=== PATIENT | female | born 1950 | race Asian ===

== ENCOUNTER 2016-04-22 19:32 | Emergency (ER) | payer OTHER ==
[2016-04-22] MEDS ORDERED: NS 1,000 ML IV ONE (19:40)
[2016-04-22] MEDS ORDERED: ONDANSETRON 4 MG/2 ML VIAL IVP ONE ×2 (19:56→20:50)
[2016-04-22 19:57] VITALS: TEMP 97.9
--- NOTE | 2016-04-22 20:02 | UCPHY ---
H & P Patient Type: New Chief Complaint Nursing Narrative: On tuesday seen at [facility] for pain r flank . Worse w movement. Today took Tramadol at 12noon and since then has been vomiting . States a lot of urinating last pm. Denies trauma Time Seen by Provider: 04/22/16 19:40 HPI/ROS: This patient complains of severe right-sided abdominal pain. She says that it started April 04, 2018 days ago but was initially mild. Over the past 2 days became severe in intensity. The pain worsens with movement. She notes no other exacerbating or alleviating factors. She was seen at [facility] 2 days ago and prescribed tramadol for pain. The daughter was who is translating was not present at that visit so she is not certain of the diagnosis. The patient tried tramadol and started vomiting thereafter. She describes the nature the pain is sharp and severe in intensity. ROS: No fevers or chills. No other constitutional complaints. HEENT: No headache or other complaints neuro: No focal weakness or other complaints pulmonary: No coughing. No shortness of breath cardiovascular: No chest pain other she does report that her entire right side hurts. She has had normal bowel movements. She has ongoing nausea. She has a less appetite than usual. : Polyuria last night with for urinary frequency. No other urinary symptoms. Endocrine: No blurred vision or polydipsia. Integumentary: No rash complete review of symptoms is otherwise negative. Source: Family Exam Limitations: Language barrier - Personal History Current Tetanus/Diphtheria Vaccine: Unsure Current Tetanus Diphtheria and Acellular Pertussis (TDAP): Unsure - Medical/Surgical History PMH: Borderline hypertension Diabetes Past surgical history of tubal ligation. No other abdominal surgeries. Hx Diabetes: Yes Other PMH: DM. Sleep issues - Family History Significant Family History: No pertinent family hx - Social History Smoking Status: Never smoked Alcohol Use: None Drug Use: None - Physical Exam Exam: General Appearance: Pleasant female in quiet distress due to belly pain. Alert, no distress. Eyes: Pupils equal and round no pallor or injection. ENT, Mouth: Mucous membranes moist. Respiratory: There are no retractions, lungs are clear to auscultation. Cardiovascular: Regular rate and rhythm. No murmur gallop rub. No peripheral edema. Gastrointestinal: Hypoactive bowel sounds. Soft, positive right lower quadrant tenderness-moderate. No rebound tenderness. Rovsing's is negative. Back: Positive right CVA tenderness Neurological: Alert with no focal deficits appreciated. Skin: Warm and dry, no rashes. Musculoskeletal: Neck is supple nontender. Extremities are symmetrical, full range of motion. Psychiatric: Flat affect otherwise normal mood and affect DIFFERENTIAL DIAGNOSIS: After history and physical exam differential diagnosis was considered for ureteral stone, pyelonephritis, appendicitis, diverticulitis , diverticular abscess, pancreatitis Constitutional: Initial Vital Signs Temperature (C) 36.6 C 04/22/16 19:51 Heart Rate 83 04/22/16 19:51 Respiratory Rate 18 04/22/16 19:51 Blood Pressure 204/122 H 04/22/16 19:51 O2 Sat (%) 94 04/22/16 19:51 O2 Delivery Mode Room Air Allergies/Adverse Reactions: No Known Allergies Allergy (Unverified 04/22/16 19:51) Home Medications: Medication Instructions Recorded Diabetes Medication 04/22/16 Docusate Sodium [Colace 100 MG (*)] 100 mg PO DAILY #30 cap 04/22/16 Methocarbamol [Robaxin 750 mg (*)] 750 - 1,500 mg PO QID PRN #30 tab 04/22/16 Metoprolol Tartrate 25 mg PO DAILY #30 tablet 04/22/16 Sleep Medication 04/22/16 traMADol 04/22/16 Medical Decision Making - Diagnostics EKG Interpretation: 12 lead EKG performed at 8:31 p.m. -indication mild dyspnea and questionable chest pressure reveals sinus rhythm at 68 Intervals: Normal throughout [place]: Normal throughout ST segments: Biphasic T's anteriorly with no previous EKG for comparison. Cannot rule out anterior ischemia. Imaging: Chest x-ray: Normal by my interpretation Abdomen/pelvis CT with IV contrast rule out appendicitis: Normal appearing appendix per Dr. Zheng radiologist. 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 I also reviewed the CT images. ED Course/Re-evaluation: At 8:15 p.m. back in the room to check on the patient she has mild hypoxia after a low dose of IV morphine placed on supplemental O2 2 L. She reports her daughter that she occasionally has a feeling of pressure in her chest including currently. An EKG is ordered her O2 sat is 98% on 2 L. After dose of morphine went back to check on the patient and she reports her belly pain is diminished to moderate intensity. She clarifies that she felt mild dyspnea intermittently rather than chest pain. I counseled the patient and her family regarding the osteoarthritis which is causing some for back pain and the constipation. We ruled out appendicitis. Rule out UTI. She does not have a surgical abdomen. No concerning findings on her CT. Shortly prior to discharge the patient was brought to an upright seated position she developed nausea and vomited. She was then treated with Reglan and Benadryl IV. Discussion: Cause of this patient's symptoms is not entirely clear. She has DJD lumbar spine on a CT scan which may because of her low back pain. She also has constipation which may be contributing to her belly pain. However given the vomiting suspect that she has a viral illness or some other process is contributing. Ruled out pancreatitis with a negative lipase. Her urinalysis is unremarkable exception of very mild proteinuria. She has moderate hypertension while here in considerations lower less likely could include autoimmune vasculitis causing multiple symptoms. Hypertensive emergencies another possibility although with mild analgesia her hypertension significantly reduced. She denies any ongoing dyspnea other symptoms and her abdominal pain nearly resolved at the time of discharge. We did discuss potential admission for further evaluation but the patient wants to go home. After Reglan and Benadryl she feels improved. She wants to go home. I counseled family in some detail regarding the patient's hypertension, constipation, DJD, vomiting. I recommended follow up with Cardiology in addition for subtly abnormal EKG for further evaluation. Patient's blood pressure improved to 146/78 at the time of discharge without antihypertensive is but will plan to place her on low dose of metoprolol. - Data Points Laboratory Results: Laboratory Results 04/22/16 20:03 04/22/16 20:03 04/22/16 04/22/16 20:20 20:03 WBC 9.81 H 10^3/uL (3.80-9.50) RBC 4.25 10^6/uL (4.18-5.33) Hgb 13.2 g/dL (12.6-16.3) Hct 38.0 % (38.0-47.0) MCV 89.4 fL (81.5-99.8) MCH 31.1 pg (27.9-34.1) MCHC 34.7 g/dL (32.4-36.7) RDW 12.2 % (11.5-15.2) Plt Count 216 10^3/uL (150-400) MPV 10.5 fL (8.7-11.7) Neut % (Auto) 86.2 H % (39.3-74.2) Lymph % (Auto) 8.6 L % (15.0-45.0) [place] % (Auto) 4.1 L % (4.5-13.0) Eos % (Auto) 0.1 L % (0.6-7.6) Baso % (Auto) 0.6 % (0.3-1.7) Nucleat RBC Rel Count 0.0 % (0.0-0.2) Absolute Neuts (auto) 8.46 H 10^3/uL (1.70-6.50) Absolute Lymphs (auto) 0.84 L 10^3/uL (1.00-3.00) Absolute Monos (auto) 0.40 10^3/uL (0.30-0.80) Absolute Eos (auto) 0.01 L 10^3/uL (0.03-0.40) Absolute Basos (auto) 0.06 10^3/uL (0.02-0.10) Absolute Nucleated RBC 0.00 10^3/uL (0-0.01) Immature Gran % 0.4 % (0.0-1.1) Immature Gran # 0.04 10^3/uL (0.00-0.10) Sodium 138 mEq/L (134-144) Potassium 3.9 mEq/L (3.5-5.2) Chloride 103 mEq/L (97-110) Carbon Dioxide 25 mEq/l (22-31) Anion Gap 10 mEq/L (8-16) BUN 14 mg/dL (7-23) Creatinine 0.7 mg/dL (0.6-1.0) Estimated GFR > 60 Glucose 161 H mg/dL (70-100) Calcium 9.5 mg/dL (8.5-10.4) Troponin I < 0.012 ng/mL (0-0.034) Lipase 65.0 IU/L (23-300) Urine Color YELLOW Urine Appearance CLEAR Urine pH 7.5 (5.0-7.5) Ur Specific [place] 1.020 (1.002-1.030) Urine Protein 1+ H (NEGATIVE) Urine Ketones TRACE H (NEGATIVE) Urine Blood TRACE H (NEGATIVE) Urine Nitrate NEGATIVE (NEGATIVE) Urine Bilirubin NEGATIVE (NEGATIVE) Urine Urobilinogen 0.2 EU (0.2-1.0) Ur Leukocyte Esterase NEGATIVE (NEGATIVE) Urine RBC 0-1 /hpf (0-3) Urine WBC 0-1 /hpf (0-3) Ur Epithelial Cells 1+ /lpf (NONE-1+) Hyaline Casts 0-1 /lpf (0-1) Urine Mucus 1+ /lpf (NONE-1+) Urine Yeast OCCASIONAL H /hpf (NONE SEEN) Urine Glucose TRACE H (NEGATIVE) Medications Given: Discontinued Medications Diphenhydramine HCl (Benadryl Injection) 25 mg IVP EDNOW ONE Stop: 04/22/16 22:20 Last Admin: 04/22/16 22:22 Dose: 25 mg Sodium Chloride (Ns) 1,000 mls @ 0 mls/hr IV ONCE ONE PRN Reason: Wide Open Stop: 04/22/16 19:41 Last Admin: 04/22/16 20:05 Dose: 1,000 mls Metoclopramide HCl (Reglan Injection) 5 mg IVP EDNOW ONE Stop: 04/22/16 22:20 Last Admin: 04/22/16 22:25 Dose: 5 mg Morphine Sulfate (Morphine) 4 mg IVP EDNOW ONE Stop: 04/22/16 19:58 Last Admin: 04/22/16 20:07 Dose: 4 mg Morphine Sulfate (Morphine) 2 mg IVP EDNOW ONE Stop: 04/22/16 20:39 Last Admin: 04/22/16 20:50 Dose: 2 mg Ondansetron HCl (Zofran) 4 mg IVP EDNOW ONE Stop: 04/22/16 19:57 Last Admin: 04/22/16 20:06 Dose: 4 mg Ondansetron HCl (Zofran) 4 mg IVP EDNOW ONE Stop: 04/22/16 20:51 Last Admin: 04/22/16 20:46 Dose: 4 mg Departure - Departure Disposition: Home, Routine, Self-Care Clinical Impression: Abdominal pain, acute, right lower quadrant Constipation Qualifiers: Constipation type: unspecified constipation type Qualifier Code: (K59.00) Constipation, unspecified Osteoarthritis of lumbar spine Qualifiers: Spinal osteoarthritis complication: without myelopathy or radiculopathy Qualifier Code: (M47.816) Spondylosis without myelopathy or radiculopathy, lumbar region Hypertension Qualifiers: Hypertension type: essential hypertension Qualifier Code: (I10) Essential ( primary) hypertension Condition: Good Instructions: Degenerative Disc Disease (ED), Hypertension (ED), Constipation ( ED) Additional Instructions: Diagnoses: 1. Right lower quadrant abdominal pain 2. Constipation 3. Osteoarthritis of the lumbar spine 4. Hypertension Plan: Methocarbamol muscle relaxant as needed. No driving on methocarbamol. Tylenol in addition Ibuprofen in addition if needed for pain 400 mg per 6 hours for few days. Colace stool softener. Start metoprolol for blood pressure Plenty of fruits, fiber and fluids. Follow up with her primary care physician for recheck in 4-5 days for a rec- check of BP and for any ongoing symptoms despite treatment plan. Also, follow up with Cardiology for further evaluation given her hypertension and subtly abnormal EKG. Go to the emergency department for any significant worsening despite the treatment plan. Referrals: SHANNAN SALAS,. [Primary Care Provider] - As per Instructions Kenroy Toth MD [Medical Doctor] - As per Instructions Prescriptions: Docusate Sodium [Colace 100 MG (*)] 100 mg PO DAILY #30 cap Metoprolol Tartrate 25 mg PO DAILY #30 tablet Methocarbamol [Robaxin 750 mg (*)] 750 - 1,500 mg PO QID PRN #30 tab PRN Reason: Muscle Spasms - PQRS PQRS Measurement: 134: Depression screening and followup, PRIME MD-PHQ2 (12 years and older) Over the last 2 weeks, how often have you been bothered by any of the following problems? 1. Feeling down, depressed, or hopeless? 2. Little interest or pleasure in doing things? Patient answered no to both 1 and 2 130: Documentation of medications. Reviewed all patient medications, doses, route and frequency. 226: Do you smoke? [No.] 47: 65 and older: Advanced care planning. Patient designates surrogate decision maker as spouse 51: 18 years old and older with diagnosis of COPD, spirometry performance. NA 52: 18 years old and older with COPD and symptoms of COPD or FEV1<60% predicted prescribed a B Agonist. NA
[2016-04-22 20:14] LABS: % IMMATURE GRANULYOCYTES 0.4 % (0.0-1.1); ABSOLUTE IMMATURE GRANULOCYTES 0.04 10^3/uL (0.00-0.10); ADD DIFF? NO; ADD MORPH? NO; ADD SCAN? NO; ATYPICAL LYMPHOCYTE FLAG 0 (0-99); FRAGMENT RBC FLAG 0 (0-99); HEMOGLOBIN 13.2 g/dL (12.6-16.3); LEFT SHIFT FLG 10 (0-99); LIPEMIA HEMOLYSIS FLAG 90 (0-99); MEAN CELL HEMOGLOBIN 31.1 pg (27.9-34.1); MEAN CELL HEMOGLOBIN CONCENTR. 34.7 g/dL (32.4-36.7); MEAN CELL VOLUME 89.4 fL (81.5-99.8); MEAN PLATELET VOLUME 10.5 fL (8.7-11.7); PLATELET CLUMPS FLAG 0 (0-99); PLATELET COUNT 216 10^3/uL (150-400); RED BLOOD CELL COUNT 4.25 10^6/uL (4.18-5.33); RED CELL DISTRIBUTION WIDTH 12.2 % (11.5-15.2)
[2016-04-22 20:27] LABS: ANION GAP 10 mEq/L (8-16); CALCIUM 9.5 mg/dL (8.5-10.4); CARBON DIOXIDE 25 mEq/l (22-31); CHLORIDE 103 mEq/L (97-110); CREATININE 0.7 mg/dL (0.6-1.0); GLOMERULAR FILTRATION RATE > 60; GLUCOSE 161 mg/dL (70-100); POTASSIUM 3.9 mEq/L (3.5-5.2); SODIUM 138 mEq/L (134-144)
--- NOTE | 2016-04-22 20:32 | CPEKG ---
Heart Rate: 68 RR Interval: 882 P-R Interval: 192 QRSD Interval: 94 QT Interval: 440 QTC Interval: 469 P [place]: 49 QRS [place]: 56 T Wave [place]: 77 EKG Severity - BORDERLINE ECG - EKG Impression: SINUS RHYTHM EKG Impression: BORDERLINE T ABNORMALITIES, ANT-LAT LEADS Electronically Signed By: Derian Lindsay 22-Apr-2016 22:31:09
[2016-04-22 20:33] LABS: COLOR YELLOW; LEUKOCYTE ESTERASE,URINE NEGATIVE (NEGATIVE); NITRITE,URINE NEGATIVE (NEGATIVE); PH,URINE 7.5 (5.0-7.5)
[2016-04-22] MEDS ORDERED: IOPAMIDOL (ISOVUE-300) 100 ML BTL IV ONE (20:51)
--- NOTE | 2016-04-22 20:55 | DX ---
Chest, PA and Lateral History: Hypoxia, right-sided chest pain, possible pneumonia or pneumothorax Findings: Lungs are clear, without infiltrate or consolidation. Heart size is normal. There is no floresita nopathy or mass lesion. There is no pleural effusion or pneumothorax. Bones are unremarkable for age. No free air or dilated bowel loops are identified beneath either hemidiaphragm. EKG leads overlie th e chest. Impression: Normal.
[2016-04-22 21:03] LABS: WBC,URINE 0-1 /hpf (0-3)
[2016-04-22 21:04] LABS: HYALINE CASTS 0-1 /lpf (0-1); MUCUS 1+ /lpf (NONE-1+); RBC,URINE 0-1 /hpf (0-3); YEAST OCCASIONAL /hpf (NONE SEEN)
--- NOTE | 2016-04-22 21:56 | CT ---
CT Abdomen and Pelvis with contrast HISTORY: Severe right lower abdominal pain, possible appendicitis or diverticulitis TECHNIQUE: 90 mL Isovue-300 injected intravenously without complication. Low-dose technique was utili zed to evaluate the abdomen and pelvis. Sagittal and coronal reconstructions are obtained and reviewe d. FINDINGS: There is a normal vermiform appendix with tip directly anterior to the L5-S1 disc space. Th ere is fecal material throughout the majority of the colon. The uterus is enlarged and associated wit h rounded masses consistent with fibroids. No adnexal pathology is identified. There is no pelvic esthela e fluid. The terminal ileum looks normal. There is no evidence of diverticulosis or diverticulitis. T here is no bowel obstruction or free air. Heart size is normal without pericardial effusion. Lung bases are normally aerated without pleural effusion. The liver, gallbladder, biliary tree, splee n, pancreas, adrenal glands, retroperitoneum and kidneys are normal. There is no nephro or ureterolit hiasis. Incidentally noted are bilateral peripelvic cysts. The portal vein, splenic vein, celiac axis , superior mesenteric artery, right renal artery and the inferior mesenteric artery are patent. There is possibly a flow limiting partially calcified plaque involving the origin of the left renal artery . The kidneys however are normal in size and symmetric and contrast enhancement. The urinary bladder is unremarkable without stone formation. There is no abdominal or pelvic adenopathy. There is atheros clerotic change of the normal sized abdominal aortic wall. There is no aortic dissection. There is de generative vacuum disc phenomenon at L3-L4 and L5-S1. There is bilateral foraminal encroachment secon chance to bone spurring at L5-S1 left greater than right. Impression: 1. No source for right lower quadrant pain identified other than possible constipation. 2. Degenerative lumbar spine disease and atherosclerosis. 3. Possible subtle flow-limiting stenosis origin left renal artery. Is this patient hypertensive? 4. Fibroids Results discussed with Dr. Rober Lindsay at 9:54 PM.
[2016-04-22] MEDS ORDERED: METOPROLOL TARTRATE 25 MG TAB PO ONE (22:11)
[2016-04-22] MEDS ORDERED: METOCLOPRAMIDE 10 MG/2 ML VIAL IVP ONE (22:19)
[2016-04-22 22:56] VITALS: BP 146/78; PULSE 72; RESP 16; O2SAT 93
== END 2016-04-22 22:53 | disposition home or self-care (01) ==
LOC: CED 19:32
DX: R10.31 Right lower quadrant pain (principal); K59.00 Constipation, unspecified; I10 Essential (primary) hypertension; M51.36 Other intervertebral disc degeneration, lumbar region; E11.9 Type 2 diabetes mellitus without complications
CPT/HCPCS: 71020-PO; 74177-PO; 80048-PO; 81003-PO; 81015-PO; 83690-PO; 84484-PO; 85025-PO; 93010-PO; 96361-PO; 96374-PO; 96375-PO; 96376-PO; 99205-PO; G0463-PO; J2405; J2765; Q9967